=== PATIENT | female | born 2000 | race Caucasian/White ===

== ENCOUNTER 2025-01-02 18:45 | Emergency (ER) | payer BC, SELFPAY ==
[2025-01-02 18:50] VITALS: BP 125/91
[2025-01-02 19:15] LABS: Urine Character Clear (Clear)
[2025-01-02 19:16] LABS: Hematocrit 39.4 % (37.0-47.0); Hemoglobin 13.2 g/dL (12.0-16.0); Mean Corp Hgb Conc. 33.5 g/dL (33.0-37.0); Mean Corpuscular Volume 84.5 fL (81.0-99.0); Nucleated Red Blood Cells % 0 %; Platelet Count 167 10^3/uL (130-400); Red Cell Dist. Width 12.6 % (11.5-14.5)
[2025-01-02 19:28] LABS: HCG, Serum Qualitative Screen Negative
[2025-01-02 19:32] LABS: ALT (SGPT) 18 U/L (0-35); AST (SGOT) 22 U/L (14-36); Albumin 5.1 g/dl (3.5-5.0); Alkaline Phosphatase 45 U/L (38-126); Blood Urea Nitrogen 12 mg/dl (7-17); Calcium 10.1 mg/dl (8.4-10.2); Carbon Dioxide 24 mmol/L (22-30); Chloride 105 mmol/L (98-107); Glucose 102 mg/dl (70-99); Lipase 82 U/L (23-300); Potassium 3.8 mmol/L (3.5-5.1); Sodium 138 mmol/L (135-145); Total Protein 8.0 g/dl (6.3-8.2); eGFR > 60.00
[2025-01-02 19:39] LABS: Troponin I < 0.012 ng/ml
[2025-01-02 20:25] VITALS: BP 136/89
[2025-01-02 20:37] VITALS: BMI 19.0
[2025-01-02 20:39] VITALS: BP 136/89
--- NOTE | 2025-01-02 20:42 | ED.GENMED ---
History of Present Illness
<Randa Santizo PA-C - Last Filed: 01/03/25 00:53>
General
Chief Complaint: Abdominal Pain
Source: patient
Exam Limitations: none
Time Seen by Provider: 01/02/25 20:30
History of Present Illness
History of Present Illness:
24yoF with a history of brain AVM s/p surgery and migraines presenting with her mother for evaluation of abdominal pain. Patient has been experiencing pain in her epigastric region for the past 3 weeks. Pain seems to be worse after eating. She
has been seen by her PCP who thought she may have an ulcer. She was started on omeprazole 40 mg daily which she has been taking about 2 weeks without significant improvement. Patient ate a burger yesterday and started to have worsening pain
afterwards. Pain is described as a cramping sensation with a 'hole in her stomach.' She is also having some nausea but denies any vomiting. She has been constipated intermittently. No hematochezia, weight loss, urinary symptoms. Only prior
abdominal surgery is an appendectomy. Patient has an appointment with gastroenterology scheduled for May.
Phy Exam
<Randa Santizo PA-C - Last Filed: 01/03/25 00:53>
General Physical Exam
General Presentation: well appearing and no apparent distress
General Skin: warm and dry
General Habitus: normal
General Mental: alert
ENT Exam
ENT Exam: normocephalic
Pulmonary Exam
Pulmonary Exam: no respiratory distress
Gastrointestinal Exam
Gastrointestinal Exam: soft, non distended and other (Mild tenderness in epigastrium. Abdomen soft, non-distended. No rebound or guarding.)
Neurological Exam
Neurological Exam: alert
[place] Coma Scale
Eye Opening: Spontaneous
Verbal Response: Oriented
Motor Response: Obeys Commands
GCS Total Score: 15
Skin Exam
Skin Exam: normal color and warm/dry
Psychiatric Exam
Psychiatric Exam: normal mood/affect
<Abdirizak Harris Jr., PA-C - Last Filed: 01/03/25 00:48>
[place] Coma Scale
GCS Total Score: 15
Course
<Randa Tayler Santizo PA-C - Last Filed: 01/03/25 00:53>
Orders/Labs/Results
Orders:
Orders
01/02/25 18:55
Electrocardiogram (*1) Urgent
Reason for Study: Chest Pain
EKG- Treatment ONCE
01/02/25 18:56
Test Result ONCE
01/02/25 19:06
Complete Blood Count/With Diff Urgent
Comprehensive Metabolic Panel Urgent
HCG, Serum Qualitative Screen Urgent
Comment: Notify provider if positive test present
Lipase Urgent
Troponin I Urgent
Urinalysis Reflex To Culture Urgent
Date Specimen was Collected: 01/02/25
Time Specimen was Collected: 18:56
01/02/25 21:04
CT Abd/pel W Iv And Oral Contr Urgent
Comment:
Reason For Exam: epigastric pain
Iohexol [Omnipaque] See Protocol PO NOW STA
01/02/25 22:20
Ondansetron Injectable [Zofran] 4 mg IV NOW STA
01/03/25 00:37
Mag Hydrox/Al Hydrox/Simeth [Maalox] 30 ml Phenobarb/Hyoscy/Atropine/Scop [] 10 ml Viscous Lidocaine 2% [Xylocaine Viscous Cup] 10 ml PO NOW
Abnormal Lab Results
01/02/25
19:06
MPV 11.1 H fL
(7.4-10.4)
Glucose 102 H mg/dl
(70-99)
Albumin 5.1 H g/dl
(3.5-5.0)
Urine Ketones 2+ A
(Negative)
01/02/25 19:06
01/02/25 19:06
Vital Signs
Initial and Last Documented VS:
Initial Vital Signs
Temp Pulse Resp BP Pulse Ox
99 F 85 16 125/91 100
01/02/25 18:50 01/02/25 18:50 01/02/25 18:50 01/02/25 18:50 01/02/25 18:50
Last Documented Vital Signs
Temp Pulse Resp BP Pulse Ox
99 F 68 15 109/76 100
01/02/25 18:50 01/03/25 00:00 01/03/25 00:00 01/02/25 23:58 01/02/25 20:43
<Abdirizak Harris Jr., PA-C - Last Filed: 01/03/25 00:48>
Orders/Labs/Results
Orders:
Orders
01/02/25 18:55
Electrocardiogram (*1) Urgent
Reason for Study: Chest Pain
EKG- Treatment ONCE
01/02/25 18:56
Test Result ONCE
01/02/25 19:06
Complete Blood Count/With Diff Urgent
Comprehensive Metabolic Panel Urgent
HCG, Serum Qualitative Screen Urgent
Comment: Notify provider if positive test present
Lipase Urgent
Troponin I Urgent
Urinalysis Reflex To Culture Urgent
Date Specimen was Collected: 01/02/25
Time Specimen was Collected: 18:56
01/02/25 21:04
CT Abd/pel W Iv And Oral Contr Urgent
Comment:
Reason For Exam: epigastric pain
Iohexol [Omnipaque] See Protocol PO NOW STA
01/02/25 22:20
Ondansetron Injectable [Zofran] 4 mg IV NOW STA
01/03/25 00:37
Mag Hydrox/Al Hydrox/Simeth [Maalox] 30 ml Phenobarb/Hyoscy/Atropine/Scop [] 10 ml Viscous Lidocaine 2% [Xylocaine Viscous Cup] 10 ml PO NOW
Abnormal Lab Results
01/02/25
19:06
MPV 11.1 H fL
(7.4-10.4)
Glucose 102 H mg/dl
(70-99)
Albumin 5.1 H g/dl
(3.5-5.0)
Urine Ketones 2+ A
(Negative)
01/02/25 19:06
01/02/25 19:06
Vital Signs
Initial and Last Documented VS:
Initial Vital Signs
Temp Pulse Resp BP Pulse Ox
99 F 85 16 125/91 100
01/02/25 18:50 01/02/25 18:50 01/02/25 18:50 01/02/25 18:50 01/02/25 18:50
Last Documented Vital Signs
Temp Pulse Resp BP Pulse Ox
99 F 68 15 109/76 100
01/02/25 18:50 01/03/25 00:00 01/03/25 00:00 01/02/25 23:58 01/02/25 20:43
<Randa Santizo PA-C - Last Filed: 01/03/25 00:53>
MDM/Problems Addressed
Differential Diagnosis Includes:
24yoF here with epigastric pain x 3 weeks that is postprandial. Currently on a PPI without improvement. +Nausea. No weight loss. VSS. She is well appearing and non-toxic. No signs of peritonitis on abdominal exam. Differential diagnosis includes
but is not limited to: Gastritis, PUD, pancreatitis, biliary colic
Initial ED plan: Workup initiated in triage. Labs unremarkable including normal lipase, LFTs, renal function. UA bland without signs of infection. Upper abdominal ultrasound initially ordered but mother is requesting for this to be changed to a
CT. CT abd/pelvis with IV/PO contrast ordered.
<Randa Santizo PA-C - Last Filed: 01/03/25 00:53>
*Pulse Oximetry
SaO2: 100
Oxygen Mode of Delivery: Room air
*EKG
Interpreted by ED Provider?: Yes
EKG Intrepretation Date: 01/02/25
Heart Rate: 86
Rate: normal
Rhythm: sinus and PVC's
[place]: normal axis
Interval: normal interval
QRS Pattern: normal QRS
Ischemia: no ischemia
<Abdirizak Harris Jr., PA-C - Last Filed: 01/03/25 00:48>
*Pulse Oximetry
Patient hypoxic: no (100)
*Critical Care Note
Total Time (30-74mins, 75-104mins- exclusive of procedures): Not Applicable
<Abdirizak Harris Jr., PA-C - Last Filed: 01/03/25 00:48>
Update Note
Update Note:
Patient reassessed after CT results. CT without any emergent findings. Patient felt better at this point no severe symptoms at this time was given a green grabber and otherwise will follow-up closely with GI. Return precautions given.
ED Attending Note
<Randa Santizo PA-C - Last Filed: 01/03/25 00:53>
-
Portions of this chart may have been created with voice recognition software.� Occasional wrong word or��sound alike� substitutions may have occurred due to the inherent limitations of voice recognition software.
Discharge Plan
Departure
Patient Disposition: Home (Routine Discharge)
Date of Disposition: 01/03/25
Time of Disposition: 00:45
Patient with high blood pressure during this ER visit?: No
Condition: Good
Discharge Problem:
Abdominal pain
Instructions: Abdominal Pain
Prescriptions:
New
sucralfate [Carafate] 100 mg/mL suspension
10 ml PO BID Qty: 400 0RF
No Action
Adults Multivitamin
1 tab PO DAILY
famotidine [Pepcid] 40 mg Tablet
40 mg PO DAILY
Referrals:
PRIVATE,PHYSICIAN [Family Provider, Internal Medicine]
Cezar Cedeno DO [Active, Gastroenterology] - Follow up in 1 week
Activity Restrictions/Additional Instructions:
You came to the emergency department today with concerns of abdominal pain. Here your ER workup was normal. You will need further assessment with GI. Return for any worsening, new or concerning symptoms.
Interventions
Interventions:
*Risk Screen - Suicide Last Done: 01/02/25 18:50
*General Assessment Last Done: 01/02/25 20:28
*Neglect/Abuse Screening Last Done: 01/02/25 18:50
*ED- Fall Risk Assessment Last Done: 01/02/25 20:28
*ED COVID-19 Vaccine History Last Done: 01/02/25 20:28
LC-Pzqcmi-Xfggsfgzxw Assessment Last Done: 01/02/25 20:28
Discharge Date and Time
Print Language: [id number]
[2025-01-02 21:00] VITALS: BP 114/70
[2025-01-02] MEDS: OMNIPAQUE 50 ML PO (21:10)
[2025-01-02 22:00] VITALS: BP 108/76
[2025-01-02] MEDS: ZOFRAN 4 MG IV (22:31)
[2025-01-02 23:58] VITALS: BP 109/76
[2025-01-03] MEDS: MAALOX 50 PO (00:59)
[2025-01-03 01:00] VITALS: BP 115/65
== END 2025-01-03 01:15 | disposition home or self-care (01) ==
LOC: EMR 18:45
PROVIDERS: Student in an Organized Health Care Education/Training Program; EMERGENCY PHYSICIAN Emergency Medicine
DX: R10.9 Unspecified abdominal pain (principal); Q28.2 Arteriovenous malformation of cerebral vessels; Z79.899 Other long term (current) drug therapy
CPT/HCPCS: 99284; 96374; 74177; 80053; 81003; 83690; 84484; 84703; 85025; 93005; Q9967

== ENCOUNTER 2025-01-14 06:21 | Day surgery (SDC) | payer BC, SELFPAY | END 2025-01-14 12:05 | disposition home or self-care (01) | LOC: GI 06:21 | PROVIDERS: ATTENDING PHYSICIAN Internal Medicine | DX: R10.13 Epigastric pain (principal); R14.0 Abdominal distension (gaseous); K22.89 Other specified disease of esophagus; K20.90 Esophagitis, unspecified without bleeding | CPT/HCPCS: 43239; 88305; 88342 ==

== ENCOUNTER → 2025-02-17 07:37 | Outpatient (REF) | payer BC, SELFPAY | LOC: RAD 07:37 | PROVIDERS: ATTENDING PHYSICIAN Internal Medicine | DX: R10.13 Epigastric pain (principal) | CPT/HCPCS: 78264; A9541 ==